=== PATIENT | female | born 1935 | race Caucasian/White ===

== ENCOUNTER 2019-08-16 11:38 | Inpatient (IN) | payer OTHER, MEDICAID ==
[~2019-08-16] VITALS: Ht 157.5 cm; Wt 82.6 kg
--- NOTE | 2019-08-16 11:49 | NUR ---
Placed in room 01 . Placed on manager cardiac, blood pressure machine and pulse oximeter. To gown for exam. Side rails up.
[2019-08-16 11:50] VITALS: BP_SYST 130
--- NOTE | 2019-08-16 11:55 | NUR ---
Patient presented to ER with nc/o Chest pain and SOB. Patient A&Ox4, afebrile, speaking in full sentences, brought in to [facility] with [facility]. Patient states she had chest pain with SOB, patient states she took 1 Nitro and [facility] staff called 911. Patient states SOB episode eas brief and chest pain has decreased upon arrival to ER. Patient states she has been under stress at home. Patient states health Hx includes, A-fib, , hysterectomy, catarac sx and PMD is Dr. Escobar.
[2019-08-16 13:03] LABS: BASOPHILS % (AUTO) 0.5 % (0.0-2.0); EOSINOPHILS # (AUTO) 0.5 K/uL (0.0-0.4); EOSINOPHILS % (AUTO) 5.5 % (0.0-4.0); HEMATOCRIT 35.2 % (36-48); HEMOGLOBIN 11.9 g/dL (12.0-16.0); LYMPHOCYTES # (AUTO) 1.9 K/uL (1.0-5.5); MEAN CORPUSCULAR HEMOGLOBIN 32 pg (27-31); MEAN CORPUSCULAR HGB CONC 34 % (32-36); MEAN CORPUSCULAR VOLUME 94 fL (79.0-98.0); MONOCYTES # (AUTO) 0.6 K/uL (0.0-1.0); MONOCYTES % (AUTO) 7.2 % (1.7-9.3); NEUTROPHILS # (AUTO) 5.6 K/uL (1.8-7.7); NEUTROPHILS % (AUTO) 64.8 % (40.0-70.0); PLATELET COUNT (AUTO) 177 K/uL (130-430); RED BLOOD CELL COUNT(AUTO) 3.75 MIL/uL (4.2-6.2); RED CELL DISTRIBUTION WIDTH 13.4 % (9.0-15.0); WHITE BLOOD COUNT (AUTO) 8.7 K/uL (4.8-10.8)
[2019-08-16 13:17] LABS: ANION GAP 5 (5-15); CHLORIDE 105 mmol/L (98-107); GLUCOSE 97 mg/dL (70-99); POTASSIUM 3.9 mmol/L (3.5-5.1); SODIUM SERUM 141 mmol/L (136-145); UREA NITROGEN, BLOOD 20 mg/dL (8-21)
[2019-08-16 13:23] LABS: ALANINE AMINOTRANSFERASE 13 U/L (12-78); ALBUMIN 3.2 g/dL (3.4-4.8); ASPARTATE AMINOTRANSFERASE 13 U/L (10-37); LIPASE 125 U/L (73-393); TOTAL BILIRUBIN 0.4 mg/dL (0.0-1.0)
[2019-08-16] MEDS ORDERED: NITROGLYCERIN 0.4 MG TAB.SUBL SL ONE (13:30)
[2019-08-16] MEDS ORDERED: IOHEXOL 350 mgI/mL, 150 ML INFUS..BTL IV ONE (13:55)
--- NOTE | 2019-08-16 14:02 | NUR ---
Patient to CT with radiology staff via [facility].
--- NOTE | 2019-08-16 14:06 | NUR ---
Endorsed to saskia NICHOLAS
--- NOTE | 2019-08-16 14:10 | NUR ---
Pt placed in bedpan at this time , bedpan removed, follows commands.
--- NOTE | 2019-08-16 14:45 | NUR ---
report from saskia NICHOLAS. assissted pt to restroom.
--- NOTE | 2019-08-16 15:00 | NUR ---
Venipuncture at bedside
[2019-08-16] MEDS ORDERED: SERT50TA12 PO (15:37)
[2019-08-16] MEDS ORDERED: CLON-433 PO (15:37)
[2019-08-16] MEDS ORDERED: LOSA25TA3 PO (15:37)
[2019-08-16] MEDS ORDERED: DIFL5DRO OP (15:37)
[2019-08-16] MEDS ORDERED: FERR325T30 PO (15:37)
[2019-08-16] MEDS ORDERED: FOLI-43 PO (15:37)
[2019-08-16] MEDS ORDERED: CAT.1 PO (15:37)
[2019-08-16] MEDS ORDERED: NITSL SL (15:37)
[2019-08-16] MEDS ORDERED: CARV3.1246 PO (15:37)
[2019-08-16] MEDS ORDERED: ASPI-1153 PO (15:37)
[2019-08-16] MEDS ORDERED: DOCU-144 PO (15:37)
[2019-08-16] MEDS ORDERED: MORPHINE 2 MG/ML INJ. SYRINGE IVP PRN (15:45)
[2019-08-16] MEDS ORDERED: D5/0.45 NS 1,000 ML IV ONE (15:45)
--- NOTE | 2019-08-16 15:50 | NUR ---
Per Pilar Floyd FORKLIFT MATERIAL HANDLER to Hold Patient in ER, no beds available.
[2019-08-16] MEDS ORDERED: NITROGLYCERIN 0.4 MG TAB.SUBL SL SCH (16:00)
--- NOTE | 2019-08-16 17:42 | NUR ---
Attempted to Obtain bed from Tele, unsuccessful
[2019-08-16] MEDS ORDERED: NITROGLYCERIN 0.4 MG TAB.SUBL SL PRN (17:45)
--- NOTE | 2019-08-16 19:12 | NUR ---
Patient will be admitted to care of Dr. Varma Admitted to tele 102a unit. Will go to room 102A . Belongings list completed. Summary report printed. Report given to Thomas NICHOLAS. Transfer to Tele 102A via ACLS protocol. Licensed nurse present. IV present no signs or symptoms of infiltration.
--- NOTE | 2019-08-16 19:17 | NUR ---
report to Katherine NICHOLAS
--- NOTE | 2019-08-16 19:41 | NUR ---
Patient transported to room 135 for admission. VSS. pt denies pain
[2019-08-16 19:56] VITALS: BP_SYST 148
--- NOTE | 2019-08-16 19:59 | NUR ---
ADMIT NOTE Received pt from ER to the floor with a diagnosis of CHEST PAIN. Admission process initiated. patient oriented to pain management, safety and call light-teach back done.
--- NOTE | 2019-08-16 20:30 | NUR ---
INITIAL NOTE AT INITIAL ASSESSMENT, PATIENT IS RESTING IN BED, STABLE, NO SIGNS OF RESPIRATORY DISTRESS. PATIENT VERBALIZES NO PAIN. PLAN OF CARE FOR THE EVENING IS COMMUNICATED WITH THE PATIENT. PATIENT SUCCESSFULLY DEMONSTRATES CORRECT USAGE OF CALL LIGHT AT THIS TIME. BED IS LOCKED, ALARMED, AND AT THE LOWEST LEVEL. FALL AND SAFETY PRECAUTIONS WILL BE TAKEN THROUGHOUT THE SHIFT.
[2019-08-16] MEDS ORDERED: DIFLUPREDNATE OP SCH (21:00)
--- NOTE | 2019-08-16 21:02 | NUR ---
CONSULTATION PAGED/CALLED Reason for Consultation: CHEST PAIN Person Who was Notified:FRANCOISE Consulting Physician:VERNA Mixing Roll Operator Specialty: CARDIO Ordering Physician:
[2019-08-16] MEDS: CARVEDILOL 3.125 MG TABLET (COREG) PO SCH (21:36)
[2019-08-16] MEDS: cloNIDine HCL 0.1 MG TABLET PO SCH (21:36)
--- NOTE | 2019-08-16 22:05 | NUR ---
NOTE PATIENT IS ASSISTED TO THE RESTROOM, SHE IS NOTED WITH STEADY GAIT USING A WALKER. SHE STABLE, NO SIGNS OF RESPIRATORY DISTRESS. CALL LIGHT IS WITHIN REACH. BED IS LOCKED, ALARMED, AND AT THE LOWEST LEVEL.
--- NOTE | 2019-08-16 22:06 | NUR ---
Paged Dr. Varma s/w Nkechi
--- NOTE | 2019-08-16 23:26 | NUR ---
PAGED PAGED DOCTOR TOMMASIAN
--- NOTE | 2019-08-16 23:40 | NUR ---
COMMUNICATION WITH DR. JEFFRY TERAN HAS PAGED BACK AT THIS TIME, NEW ORDERS GIVEN. ORDERS READ BACK, VERIFIED, AND ENTERED. NEW ORDERS WILL BE COMMUNICATED TO THE PATIENT.
[2019-08-16] MEDS ORDERED: TEMAZEPAM 15 MG CAPSULE PO PRN (23:45)
[2019-08-17 01:09] VITALS: BP_SYST 152
--- NOTE | 2019-08-17 01:40 | NUR ---
NOTE PATIENT IS SLEEPING, STABLE, NO SIGNS OF RESPIRATORY DISTRESS. CALL LIGHT IS WITHIN REACH. BED IS LOCKED, ALARMED, AND AT THE LOWEST LEVEL.
--- NOTE | 2019-08-17 03:15 | NUR ---
NOTE PATIENT IS SLEEPING, STABLE, NO SIGNS OF RESPIRATORY DISTRESS. CALL LIGHT IS WITHIN REACH. BED IS LOCKED, ALARMED, AND AT THE LOWEST LEVEL.
[2019-08-17] MEDS: ACETAMINOPHEN 325 MG TABLET PO PRN (03:41)
--- NOTE | 2019-08-17 05:10 | NUR ---
NOTE PATIENT IS SLEEPING, STABLE, NO SIGNS OF RESPIRATORY DISTRESS. CALL LIGHT IS WITHIN REACH. BED IS LOCKED, ALARMED, AND AT THE LOWEST LEVEL.
--- NOTE | 2019-08-17 06:55 | NUR ---
CLOSING NOTE PATIENT HAD MINIMAL CHEST PAIN ONLY ONCE THROUGHOUT THE NIGHT. AT THIS TIME, SHE IS RESTING IN BED, STABLE, NO SIGNS OF RESPIRATORY DISTRESS. CALL LIGHT IS WITHIN REACH. BED IS LOCKED, ALARMED, AND AT THE LOWEST LEVEL. FALL AND SAFETY PRECAUTIONS HAVE BEEN IN PLACE THROUGHOUT THE SHIFT. WILL CONTINUE TO MONITOR UNTIL SHIFT REPORT IS GIVEN AT BEDSIDE TO AM NURSE.
[2019-08-17 08:15] VITALS: BP_SYST 166
[2019-08-17] MEDS: SERTRALINE HCL 50 MG TABLET PO SCH (08:44)
[2019-08-17] MEDS: DOCUSATE SODIUM 100 MG CAPSULE PO SCH ×2 (08:44→08:49)
[2019-08-17] MEDS: LOSARTAN POTASSIUM 25 MG TABLET PO SCH (08:44)
[2019-08-17] MEDS: ASPIRIN 81 MG TABLET(ECOTRIN) PO SCH (08:44)
--- NOTE | 2019-08-17 08:45 | NUR ---
Routine Scheduled medications given per order. Patient stable with no complaint of pain at this time.
[2019-08-17 11:04] VITALS: BP_SYST 160
--- NOTE | 2019-08-17 11:55 | NUR ---
Auto Finance Sales Rep/Discharge Planning Note Patient requested to meet with a high school social studies teacher. DIE TURNER conducted a Discharge Plan Assessment also. DIE TURNER met with patient at bedside. Patient is experiencing stress and anxiety at [facility] due to interactions with other residents. Discussed at length. Patient stated she plans to remain at [facility]. Given that patient has private room, friends there, and a reasonable cost, this would seem the best choice. Discussed relaxation techniques at length. Patient was unsure where her DPOA for health care was. DIE TURNER provided a new one and discussed with patient. Also discussed finances. Is seems patient would not qualify for [facility] until detention SNF would be required. Patient stated she does not want to go to a SNF or have home health care upon discharge. She uses the nursing staff at [facility] as needed. Auto Finance Sales Rep/Case Management/Manager Credit will remain available upon request.
--- NOTE | 2019-08-17 12:30 | NUR ---
Routine Patient resting comfortably in bed with no complaint of pain or discomfort. Patient stable.
[2019-08-17 15:17] VITALS: BP_SYST 139
--- NOTE | 2019-08-17 16:00 | NUR ---
Routine Patient asleep with no distress noted.
[2019-08-17 19:50] VITALS: BP_SYST 135
--- NOTE | 2019-08-17 19:50 | NUR ---
Opening notes Pt awake, no ss distress noted. VSS, pt denies pain at this time. IV saline locked L. wrist 20G clear and patent. Call light within reach. To monitor.
[2019-08-17] MEDS: CARVEDILOL 3.125 MG TABLET (COREG) PO SCH (21:06)
[2019-08-17] MEDS: cloNIDine HCL 0.1 MG TABLET PO SCH (21:06)
--- NOTE | 2019-08-17 22:30 | NUR ---
Rounds Pt asleep, no s/s distress noted. Call light within reach. Safety measures maintained. To monitor.
[2019-08-18 00:32] VITALS: BP_SYST 138
--- NOTE | 2019-08-18 01:20 | NUR ---
Rounds Pt asleep, no s/s distress noted. NPO after midnight. Call light within reach. Bed low and locked. To monitor.
--- NOTE | 2019-08-18 03:35 | NUR ---
Rounds Pt asleep, no s/s distress noted. Call light within reach. Safety measures maintained. To monitor.
--- NOTE | 2019-08-18 05:06 | NUR ---
Closing notes Pt asleep, respiration even and unlabored. No s/s distress noted. Call light within reach. Bed low, locked, siderails up x2. To endorse to AM nurse.
--- NOTE | 2019-08-18 07:32 | NUR ---
OPENING NOTE Patient resting in the bed. No acute distress. AAO x 4. Denied of pain at this time. Skin warm and dry to touch. SL intact to left wrist, no redness, no swelling, patent. Discussed the safety issue, use call light when needs help, and plan of care, verbally understanding. Safety measure maintained. Call light within reached. Bed locked in low position, side rails up. Refused bed alarm, risk and benefit explained, verbally understanding. Will continue to monitor.
[2019-08-18 08:00] VITALS: BP_SYST 132
--- NOTE | 2019-08-18 08:25 | NUR ---
2D ECHO DONE AT BEDSIDE.
--- NOTE | 2019-08-18 08:45 | NUR ---
OFF UNIT FOR STRESS TEST Off unit for stress test in stable condition via wheelchair with potable heart monitor by charge nurse,
--- NOTE | 2019-08-18 08:57 | NUR ---
PAGED RADIATION PROTECTION TECHNICIAN FOR FRO ORDERS.
[2019-08-18] MEDS: DOCUSATE SODIUM 100 MG CAPSULE PO SCH ×2 (09:00→10:29)
[2019-08-18] MEDS ORDERED: REGADENOSON 0.4 MG/5 ML SYRINGE IVP ONE (09:30)
--- NOTE | 2019-08-18 10:02 | NUR ---
BACK TO UNIT Back to unit from stress test in stable condition via wheelchair, portable heart monitor intact.
[2019-08-18] MEDS: SERTRALINE HCL 50 MG TABLET PO SCH (10:29)
[2019-08-18] MEDS: LOSARTAN POTASSIUM 25 MG TABLET PO SCH (10:29)
[2019-08-18] MEDS: ASPIRIN 81 MG TABLET(ECOTRIN) PO SCH (10:29)
--- NOTE | 2019-08-18 11:33 | NUR ---
OFF UNIT FOR STRESS TEST Off unit for stress test in stable condition via wheelchair with potable heart monitor, and stay with patient during procedure by myself.
[2019-08-18 12:02] VITALS: BP_SYST 142
--- NOTE | 2019-08-18 12:02 | NUR ---
BACK TO UNIT Back to unit from stress test in stable condition via wheelchair, portable heart monitor intact
--- NOTE | 2019-08-18 13:25 | NUR ---
ROUND Patient resting in the bed and watching TV. No acute distress. Safety measure maintained. Call light within reached. Bed locked in low position, side rails up. Continue to monitor.
[2019-08-18 16:23] VITALS: BP_SYST 145
--- NOTE | 2019-08-18 17:15 | NUR ---
SEEN AND EXAMINED BY MARY CROFT. Dr. Croft explained and answered the question to the patient.
[2019-08-18] MEDS: ACETAMINOPHEN 325 MG TABLET PO PRN (17:18)
--- NOTE | 2019-08-18 18:55 | NUR ---
CLOSING NOTE Patient resting in the bed. No acute distress. No c/o pain at this time. Skin warm and dry to touch. SL intact to left wrist, no redness, no swelling, patent. All needs met. Safety measure maintained. Call light within reached. Bed locked in low position, side rails up. Refused bed alarm, risk and benefit explained, verbally understanding. Will endorse to night nurse.
--- NOTE | 2019-08-18 19:20 | NUR ---
INITIAL NOTE RECEIVED PATIENT AWAKE, ALERT AND ORIENTED. NO COMPLAIN OF SOB, HEADACHE, CHEST PAIN OR N/V AT THIS TIME. WALKER AT THE BEDSIDE. ROOM AIR. SALINE LOCK FLUSHED. SKIN INTACT AND NO PERIPHERAL EDEMA NOTED. PATIENT TOLD ME THAT STRESS TEST WAS DONE AND SHE'S A LITTLE BIT CONFUSED ON HER CONDITION. WILL ENDORSE IN AM. CARE AND MONITORING WILL BE PROVIDED PER PROTOCOL. CALL LIGHT WITHIN REACH. BED ALARM ON AND AT LOWEST POSITION AT ALL TIMES. NEEDS ATTENDED. KEPT WARM AND COMFORTABLE.
[2019-08-18 20:00] VITALS: BP_SYST 125
[2019-08-18] MEDS: cloNIDine HCL 0.1 MG TABLET PO SCH (20:23)
[2019-08-18] MEDS: CARVEDILOL 3.125 MG TABLET (COREG) PO SCH (20:24)
--- NOTE | 2019-08-18 20:24 | NUR ---
RN NOTE DUE MEDS GIVEN. TOLERATED WELL. ASSISTED TO THE BATHROOM AND BACK IN BED WITH STEADY GAIT AND STANDBY ASSIST. WALKER AND CALL LIGHT WITHIN REACH. ADVISED TO CALL IF SHE FEELS WEAK OR DIZZY. WILL CONTINUE TO MONITOR. NEEDS ATTENDED.
--- NOTE | 2019-08-18 22:30 | NUR ---
RN NOTE PATIENT SLEEPING AT THIS TIME. NO SOB OR GRIMACING NOTED.
[2019-08-19] VITALS: BP_SYST 132
--- NOTE | 2019-08-19 01:30 | NUR ---
RN NOTE ASLEEP, MOVES AND TURNS BY HERSELF. NO DISTRESS NOTED.
--- NOTE | 2019-08-19 02:30 | NUR ---
RN NOTE PATIENT AWAKE WATCHING TV. AMBULATED TO THE BATHROOM AND BACK IN BED WITH STEADY GAIT. PATIENT VERBALIZED CONCERN RE HER CONDITION. EMOTIONAL SUPPORT PROVIDED. PATIENT WILL GO BACK TO SLEEP. NO OTHER COMPLAINTS. NEEDS ATTENDED.
--- NOTE | 2019-08-19 04:00 | NUR ---
RN NOTE SLEEPING COMFORTABLY IN BED. NO SIGNS OF ACUTE DISTRESS.
--- NOTE | 2019-08-19 06:17 | NUR ---
END NOTE AFEBRILE. VS STABLE. NO COMPLAIN OF SEVERE CHEST PAIN, SOB OR N/V THROUGHOUT THE NIGHT. SALINE LOCK. AMBULATES WITH STANDBY ASSIST AND WALKER WITHIN REACH. REPOSITION HERSELF. EMOTIONAL SUPPORT PROVIDED. CARE AND MONITORING PROVIDED PER PROTOCOL. CALL LIGHT WITHIN REACH. BED ALARM OFF PER PATIENT'S REQUEST. BED AT LOWEST POSITION AT ALL TIMES. NEEDS ATTENDED. KEPT WARM AND COMFORTABLE.
--- NOTE | 2019-08-19 08:00 | NUR ---
OPENING NOTES RECEIVED PT IN BED, PT IS AAOX4,NO C/O OF PAIN, NO SOB, NO RESP DISTRESS. CALL. IV ACCESS INTACT AND PATENT. SAFETY PRECAUTION IN PLACE. CALL LIGHT IN REACH. BED IN LOW POSITION. ENCOURAGED TO CALL FOR ASSIST AND PAIN MED. WILL CONT TO MONITOR.
[2019-08-19 08:10] VITALS: BP_SYST 133
[2019-08-19] MEDS: DOCUSATE SODIUM 100 MG CAPSULE PO SCH (09:00)
[2019-08-19] MEDS: LOSARTAN POTASSIUM 25 MG TABLET PO SCH (09:12)
[2019-08-19] MEDS: SERTRALINE HCL 50 MG TABLET PO SCH (09:12)
[2019-08-19] MEDS: ASPIRIN 81 MG TABLET(ECOTRIN) PO SCH (09:12)
--- NOTE | 2019-08-19 10:30 | NUR ---
PATIENT IN BED, SLEEPING COMFORTABLY. CALL LIGHT IN REACH. BED IN LOW POSITION. WILL CONT TO MONITOR.
--- NOTE | 2019-08-19 14:00 | NUR ---
PT IN BED, RESTING COMFORTABLE.
[2019-08-19 14:29] VITALS: BP_SYST 131
[2019-08-19 15:32] VITALS: BP_SYST 131
== END 2019-08-19 17:30 | disposition home or self-care (01) | DRG 313 ==
LOC: SED 11:38 → STU 18:43
PROVIDERS: ADMIT Family Medicine; ATTEND Family Medicine
DX: R07.89 Other chest pain (principal); E44.1 Mild protein-calorie malnutrition; I25.119 Atherosclerotic heart disease of native coronary artery with unspecified angina pectoris; I10 Essential (primary) hypertension; F32.9 Major depressive disorder, single episode, unspecified; G89.29 Other chronic pain; M54.9 Dorsalgia, unspecified; G62.9 Polyneuropathy, unspecified; Z90.710 Acquired absence of both cervix and uterus; Z79.899 Other long term (current) drug therapy; Z88.5 Allergy status to narcotic agent; I48.2 Chronic atrial fibrillation
CPT/HCPCS: 36415; 71045; 71260-TC; 80053; 82550-TC; 83605; 83690-TC; 83880; 84484; 85025; 87040-TC; 93005; 93017; 93306; 99285; A9500; G0378; J2785; Q9967

== ENCOUNTER 2022-01-29 21:11 | Emergency (ER) | payer OTHER, MEDICAID ==
[~2022-01-29] VITALS: Ht 157.5 cm; Wt 63.5 kg
[~2022-01-29 21:11] MED LIST: ASPI-1393 PO; CARV3.1246 PO; CAT.1 PO; CLON-433 PO; DIFL5DRO OP; DOCU-144 PO; FERR325T30 PO; FOLI-43 PO; LOSA25TA3 PO; NITSL SL; SERT-436 PO
[2022-01-29 21:24] VITALS: BP_SYST 176
[2022-01-29] MEDS ORDERED: NACL 0.9% 1,000 ML IV ONE (23:00)
[2022-01-30 00:01] LABS: BASOPHILS % (AUTO) 0.5 % (0.0-2.0); EOSINOPHILS # (AUTO) 0.1 K/uL (0.0-0.4); EOSINOPHILS % (AUTO) 0.9 % (0.0-4.0); HEMATOCRIT 39.9 % (36-48); HEMOGLOBIN 13.2 g/dL (12.0-16.0); LYMPHOCYTES # (AUTO) 1.5 K/uL (1.0-5.5); MEAN CORPUSCULAR HEMOGLOBIN 31 pg (27-31); MEAN CORPUSCULAR HGB CONC 33 % (32-36); MEAN CORPUSCULAR VOLUME 92 fL (79.0-98.0); MONOCYTES # (AUTO) 0.7 K/uL (0.0-1.0); MONOCYTES % (AUTO) 9.9 % (1.7-9.3); NEUTROPHILS # (AUTO) 4.5 K/uL (1.8-7.7); NEUTROPHILS % (AUTO) 66.7 % (40.0-70.0); PLATELET COUNT (AUTO) 192 K/uL (130-430); RED BLOOD CELL COUNT(AUTO) 4.33 MIL/uL (4.2-6.2); WHITE BLOOD COUNT (AUTO) 6.8 K/uL (4.8-10.8)
[2022-01-30 00:28] LABS: ANION GAP 11 (5-15); CALCIUM 8.3 mg/dL (8.4-11.0); CHLORIDE 99 mmol/L (98-107); CREATININE 0.76 mg/dL (0.55-1.30); GLUCOSE 82 mg/dL (70-99); POTASSIUM 3.2 mmol/L (3.5-5.1); SODIUM SERUM 139 mmol/L (136-145); UREA NITROGEN, BLOOD 19 mg/dL (8-21)
[2022-01-30 00:31] LABS: TOTAL BILIRUBIN 0.5 mg/dL (0.0-1.0)
[2022-01-30 00:32] LABS: ALANINE AMINOTRANSFERASE 16 U/L (12-78); ALBUMIN 3.6 g/dL (3.4-4.8); ASPARTATE AMINOTRANSFERASE 19 U/L (10-37)
[2022-01-30 00:33] LABS: LIPASE 41 U/L (73-393)
[2022-01-30] MEDS ORDERED: POTASSIUM CHLORIDE 20 MEQ TAB.PRT.SR PO ONE ×2 (00:45→01:15)
[2022-01-30 02:19] LABS: BILIRUBIN,URINE NEGATIVE (NEGATIVE); CLARITY/URINE CLEAR (CLEAR); COLOR,URINE YELLOW (YELLOW); GLUCOSE,URINE NEGATIVE (NEGATIVE); KETONES,URINE 2+ (NEGATIVE); LEUKOCYTE ESTERASE ,URINE NEGATIVE (NEGATIVE); NITRITE, URINE NEGATIVE (NEGATIVE); PH,URINE 6.5 (5.0-8.0); PROTEIN URINE NEGATIVE (NEGATIVE); UROBILINOGEN,URINE 0.2 (0.2-1.0)
[2022-01-30 02:21] LABS: BLOOD, URINE TRACE (NEGATIVE)
[2022-01-30 06:46] VITALS: BP_SYST 167
== END 2022-01-30 06:45 | disposition home or self-care (01) ==
LOC: SED 21:11
DX: E87.6 Hypokalemia (principal); R11.2 Nausea with vomiting, unspecified; I10 Essential (primary) hypertension; Z79.899 Other long term (current) drug therapy
CPT/HCPCS: 36415; 74176; 76376; 80053; 81003; 83690; 84484; 85025; 93005; 96360; 99285; J7030

== ENCOUNTER 2022-01-30 07:29 | Emergency (ER) | payer OTHER, MEDICAID ==
[~2022-01-30] VITALS: Ht 157.5 cm; Wt 63.5 kg
[2022-01-30 07:29] VITALS: BP_SYST 137
[2022-01-30] MEDS ORDERED: ONDANSETRON 4 MG ODT TAB PO ONE (08:00)
[2022-01-30] MEDS ORDERED: ONDANSETRON HCL 4 MG/2 ML VIAL IVP ONE (08:00)
[2022-01-30 09:27] VITALS: BP_SYST 134
== END 2022-01-30 09:28 | disposition home or self-care (01) ==
LOC: SED 07:29
DX: R07.89 Other chest pain (principal); I48.91 Unspecified atrial fibrillation; Z79.01 Long term (current) use of anticoagulants
CPT/HCPCS: 36415; 71045; 84484; 99284; Q0162